=== PATIENT | male | born 1985 | race Caucasian/White ===

== ENCOUNTER 2017-07-16 18:53 | Inpatient (IN) | payer MEDICAID ==
[~2017-07-16] VITALS: Ht 190.5 cm; Wt 97.5 kg
[~2017-07-16 18:53] MED LIST: NO HOME MEDS
[2017-07-16] MEDS ORDERED: vancomycin inj 1,000 MG in normal saline 250ml IV soln 250 ML IV STA (20:27)
[2017-07-16] MEDS ORDERED: normal saline 1000ML IV soln IV ONE (20:30)
[2017-07-16] MEDS ORDERED: nicotine 14mg patch - 24hr TD ONE (20:40)
[2017-07-16] MEDS ORDERED: TETanus/Pertussis (Acell)/Diphther VAC/PF (Tdap-Adult) 0.5ml syringe IMVAC ONE (20:50)
[2017-07-16] MEDS ORDERED: BUPIVAcaine/PF 2.5 mg/ml (0.25%) 30ml vial IJ ONE (20:50)
[2017-07-16 21:05] LABS: BASOPHILS # (AUTO) 0.1 X10'3 (0-0.2); BASOPHILS % (AUTO) 0.8 % (0-1); EOSINOPHILS # (AUTO) 0.3 X10'3 (0-0.9); EOSINOPHILS % (AUTO) 2.4 % (0-6); HEMATOCRIT 40.6 % (42.0-52.0); LYMPHOCYTES # (AUTO) 1.5 X10'3 (1.1-4.8); LYMPHOCYTES % (AUTO) 12.7 % (21-51); MEAN CORPUSCULAR HEMOGLOBIN 29.1 PG (27.0-31.0); MEAN CORPUSCULAR HGB CONC 34.4 % (33.0-36.5); MEAN CORPUSCULAR VOLUME 84.5 FL (78-98); MEAN PLATELET VOLUME 9.8 FL (7.4-10.4); MONOCYTES % (AUTO) 8.4 % (2-12); NEUTROPHILS # (AUTO) 8.9 X10'3 (1.8-7.7); NEUTROPHILS % (AUTO) 75.7 % (42-75); PLATELET COUNT 179 X10'3 (140-440); RED CELL DISTRIBUTION WIDTH 14.4 % (11.5-14.5); WHITE BLOOD COUNT 11.8 X10'3 (4.5-11.0)
[2017-07-16 21:17] LABS: PARTIAL THROMBOPLASTIN TIME 26 SECONDS (22-32)
[2017-07-16 21:19] LABS: ALANINE AMINOTRANSFERASE 25 U/L (12-78); ALBUMIN/GLOBULIN RATIO 0.8 (1.1-1.5); ALKALINE PHOSPHATASE 54 IU/L (46-116); ANION GAP 9 (8-16); ASPARTATE AMINO TRANSFERASE 13 U/L (10-37); BILIRUBIN,TOTAL 0.6 MG/DL (0.1-1.0); BLOOD UREA NITROGEN 7 MG/DL (7-18); BUN/CREATININE RATIO 8.8 (5.4-32.0); CALCIUM 8.5 MG/DL (8.5-10.1); CHLORIDE 101 MMOL/L (99-107); GLUCOSE 101 MG/DL (70-104); POTASSIUM 3.2 MMOL/L (3.5-5.1); SODIUM 140 MMOL/L (135-145); TOTAL CARBON DIOXIDE 30.3 MMOL/L (24-32); TOTAL PROTEIN 6.7 G/DL (6.4-8.2); eGFR > 90 ML/MIN
[2017-07-16] MEDS ORDERED: vancomycin/NS 1 GM ADD-VANTAGE 250 ML IV ONE (21:20)
[2017-07-16 21:57] LABS: CLARITY,URINE CLEAR (Clear); COLOR,URINE YELLOW (Yellow); GLUCOSE, URINE NEGATIVE (Neg); KETONES,URINE NEGATIVE (Neg); LEUKOCYTE ESTERASE ,URINE NEGATIVE (Neg); NITRITES, URINE NEGATIVE (Neg); OCCULT BLOOD,URINE NEGATIVE (Neg); PROTEIN,URINE NEGATIVE (Neg); UA COLLECTION TYPE CLN CATCH MIDSTREAM
[2017-07-16] MEDS ORDERED: LORazepam 2 mg/ml vial IV ONE (22:15)
[2017-07-16 22:20] LABS: TOTAL CELLS COUNTED 100
[2017-07-16 22:21] LABS: LARGE PLATELETS FEW; PLATELET ESTIMATE NORMAL
[2017-07-17] MEDS ORDERED: magnesium Cl slow-release 64mg tablet PO PRN (00:45)
[2017-07-17] MEDS ORDERED: ondansetron/PF 4mg/2ml inj IV PRN (00:45)
[2017-07-17] MEDS ORDERED: potassium Cl 40MEQ/NS 500ml 500 ML IV PRN ×2 (00:45)
[2017-07-17] MEDS ORDERED: thiamine 100mg/ml 2ml inj. IV ONE (00:45)
[2017-07-17] MEDS ORDERED: dextrose 50%-water 50ml dispensing syringe IV PRN (00:45)
[2017-07-17] MEDS ORDERED: haloperidol lactate 5mg/ml inj IM PRN (00:45)
[2017-07-17] MEDS ORDERED: potassium Cl 20mEq in NS 1,000 ML IV SCH (00:45)
[2017-07-17] MEDS ORDERED: HYDROcodone/acetaminophen 5mg/325mg tablet PO PRN (00:45)
[2017-07-17] MEDS ORDERED: mag hydrox/Alum hydrox/simeth 30ml oral suspension PO PRN (00:45)
[2017-07-17] MEDS ORDERED: acetaminophen 325mg tablet PO PRN (00:45)
[2017-07-17] MEDS ORDERED: magnesium 4gm in 100ml NS 100 ML IV PRN (00:45)
[2017-07-17] MEDS ORDERED: haloperidol 5mg tablet PO PRN (00:45)
[2017-07-17] MEDS ORDERED: magnesium 2GM in 50ml NS 50 ML IV PRN (00:45)
[2017-07-17] MEDS ORDERED: potassium Cl 20 mEq SR tablet PO PRN (00:45)
[2017-07-17] MEDS ORDERED: magnesium hydroxide 30ml (MOM) UD suspension PO PRN (00:45)
[2017-07-17] MEDS ORDERED: temazepam 15mg capsule PO PRN (01:03)
[2017-07-17] MEDS ORDERED: vancomycin/NS 1 GM ADD-VANTAGE 250 ML IV ONE (01:20)
[2017-07-17] MEDS: HYDROcodone/acetaminophen 10/325mg tab PO PRN ×3 (01:50→11:49)
[2017-07-17] MEDS: LORazepam 2 mg/ml vial IV PRN ×2 (01:50→11:43)
[2017-07-17] MEDS: potassium Cl 20 mEq SR tablet PO PRN ×2 (02:24→07:34)
[2017-07-17 02:30] VITALS: BP 122/78
[2017-07-17] MEDS ORDERED: vancomycin/NS 1 GM ADD-VANTAGE 250 ML IV SCH (08:00)
[2017-07-17] MEDS ORDERED: K and/or MAG REPLACEMENT MC SCH (08:00)
[2017-07-17] MEDS ORDERED: heparin, porcine 5000 units/ml vial SQ SCH (08:00)
[2017-07-18] MEDS ORDERED: VANCOMYCIN LEVEL IV ONE (07:30)
[2017-07-19] MEDS ORDERED: LORazepam 2 mg/ml vial IV PRN (00:45)
[2017-07-19] MEDS ORDERED: LORazepam 1 MG tablet PO PRN (00:45)
[2017-07-21] MEDS ORDERED: LORazepam 2 mg/ml vial IV PRN (00:45)
[2017-07-21] MEDS ORDERED: LORazepam 1 MG tablet PO PRN (00:45)
== END 2017-07-17 12:17 | disposition left against medical advice (07) | DRG 383 ==
LOC: ER 18:54 → ORTHO 4S 07-17 00:45
PROVIDERS: ADMIT Internal Medicine; ATTEND Internal Medicine
PROC: 0H9CXZZ Drainage of Left Upper Arm Skin, External Approach (ICD-10-PCS; principal; 2017-07-16)
DX: L02.414 Cutaneous abscess of left upper limb (principal); E87.6 Hypokalemia; F17.210 Nicotine dependence, cigarettes, uncomplicated; Z53.21 Procedure and treatment not carried out due to patient leaving prior to being seen by health care provider; L03.114 Cellulitis of left upper limb
CPT/HCPCS: 36415; 71045; 80053; 81003; 83605; 83735; 84132; 84145; 85025; 85610; 85730; 87040; 87070; 90715; 93005; A6212; A6449; J1644; J2060; J2405; J3370; J3411; J3490; J7030; J7040; J7120

== ENCOUNTER → 2017-11-14 | Emergency (ER) | payer MEDICAID ==
[~2017-11-14] VITALS: Ht 193 cm; Wt 81.8 kg
[2017-11-14 13:58] VITALS: BP 140/87
[2017-11-14 14:39] LABS: HIV ANTIBODY 1&2 RAPID NON-REACTIVE (Neg)
[2017-11-16 08:48] LABS: HBSAG SCREEN Negative (Negative); HEPATITIS C ANTIBODY <0.1 s/co ratio (0.0-0.9)
== END | disposition home or self-care (01) ==
LOC: ER 13:55
DX: Z00.00 Encounter for general adult medical examination without abnormal findings (principal); F15.90 Other stimulant use, unspecified, uncomplicated
CPT/HCPCS: 36415; 86703; 86706; 86803; 87340; 99284; J7030

== ENCOUNTER 2017-12-13 16:57 | Emergency (ER) | payer MEDICAID ==
[~2017-12-13 16:57] MED LIST changes: +IBUP-1986 PO
== END 2017-12-13 18:07 | disposition left against medical advice (07) ==
LOC: ER 16:58
DX: M79.606 Pain in leg, unspecified (principal); L08.9 Local infection of the skin and subcutaneous tissue, unspecified; Z53.21 Procedure and treatment not carried out due to patient leaving prior to being seen by health care provider

== ENCOUNTER 2018-11-18 04:32 | Emergency (ER) | payer MEDICAID | END 2018-11-18 04:42 | disposition left against medical advice (07) | LOC: ER 04:34 | DX: T65.891A Toxic effect of other specified substances, accidental (unintentional), initial encounter (principal); Z53.21 Procedure and treatment not carried out due to patient leaving prior to being seen by health care provider; Y92.89 Other specified places as the place of occurrence of the external cause ==

== ENCOUNTER 2019-04-26 11:24 | Emergency (ER) | payer MEDICAID ==
[~2019-04-26] VITALS: Ht 193 cm; Wt 77.3 kg
[2019-04-26] MEDS ORDERED: morphine 4 MG/ML inj SYRINge IV ONE (11:30)
[2019-04-26] MEDS ORDERED: ondansetron/PF 4mg/2ml inj IV ONE (11:30)
[2019-04-26 11:54] LABS: BASOPHILS # (AUTO) 0.1 X10'3 (0-0.2); BASOPHILS % (AUTO) 0.5 % (0-1); EOSINOPHILS # (AUTO) 0.1 X10'3 (0-0.9); EOSINOPHILS % (AUTO) 0.8 % (0-6); HEMATOCRIT 39.5 % (42.0-52.0); HEMOGLOBIN 13.2 g/dl (14.0-17.9); LYMPHOCYTES # (AUTO) 1.1 X10'3 (1.1-4.8); LYMPHOCYTES % (AUTO) 7.3 % (21-51); MEAN CORPUSCULAR HEMOGLOBIN 28.9 PG (27.0-31.0); MEAN CORPUSCULAR HGB CONC 33.4 g/dL (33.0-36.5); MEAN CORPUSCULAR VOLUME 86.7 FL (78-98); MEAN PLATELET VOLUME 8.1 FL (7.4-10.4); MONOCYTES % (AUTO) 6.3 % (2-12); NEUTROPHILS # (AUTO) 12.9 X10'3 (1.8-7.7); NEUTROPHILS % (AUTO) 85.1 % (42-75); PLATELET COUNT 240 X10'3 (140-440); RED BLOOD COUNT 4.56 X10'6 (4.70-6.10); RED CELL DISTRIBUTION WIDTH 14.8 % (11.5-14.5); WHITE BLOOD COUNT 15.2 X10'3 (4.5-11.0)
[2019-04-26 12:17] LABS: ALANINE AMINOTRANSFERASE 181 U/L (12-78); ALBUMIN 3.5 G/DL (3.4-5.0); ALBUMIN/GLOBULIN RATIO 0.9 (1.1-1.5); ALKALINE PHOSPHATASE 80 IU/L (46-116); ANION GAP 6 (8-16); ASPARTATE AMINO TRANSFERASE 80 U/L (10-37); BILIRUBIN,TOTAL 0.6 MG/DL (0.1-1.0); BLOOD UREA NITROGEN 8 MG/DL (7-18); BUN/CREATININE RATIO 10.1 (5.4-32.0); CALCIUM 8.4 MG/DL (8.5-10.1); CHLORIDE 100 MMOL/L (99-107); CREATININE 0.79 MG/DL (0.60-1.10); GLUCOSE 85 MG/DL (70-104); POTASSIUM 3.7 MMOL/L (3.5-5.1); SODIUM 138 MMOL/L (135-145); TOTAL CARBON DIOXIDE 31.9 MMOL/L (24-32); TOTAL PROTEIN 7.5 G/DL (6.4-8.2); eGFR > 90 ML/MIN
[2019-04-26] MEDS ORDERED: CefTRIAXone/D5W-Rocephin 1gm 50 ML IV ONE (12:45)
[2019-04-26] MEDS ORDERED: normal saline 1000ML IV soln IVB ONE (12:45)
[2019-04-26 13:09] VITALS: BP 152/112
--- NOTE | 2019-04-26 13:11 | NUR ---
Patient ambulated to restroom to provide urine sample, while in restroom patient became irratated and started to yell at staff and refusing to give urine sample. Patients states he's not on drugs. Patient continues to yell at staff. Security called and at restroom. Patient escorted back to room. Patient calming down. Xray at bedside. Patient cooperative.
[2019-04-26] MEDS ORDERED: iohexol 300mg/ml 100ml inj. ONE (13:35)
[2019-04-26] MEDS ORDERED: OLANZapine **IM** 10 mg inj. IM ONE (13:40)
--- NOTE | 2019-04-26 13:47 | NUR ---
Patient continues to yell at self and staff while sitting in room.
--- NOTE | 2019-04-26 13:53 | NUR ---
Patient kicked wall. Security at bedside. Lovett PA at bedside. Patient medicated and agrees to calm down.
--- NOTE | 2019-04-26 13:54 | NUR ---
Patient to CT
--- NOTE | 2019-04-26 14:13 | NUR ---
Patient back from CT. Patient lying in bed, cursing at self.
--- NOTE | 2019-04-26 14:39 | NUR ---
Patient resting in bed with eyes closed, no longer yelling or being agressive.
[2019-04-26] MEDS ORDERED: LORazepam 2 mg/ml vial IM ONE (14:50)
[2019-04-26] MEDS ORDERED: ketorolac tromethamine 15mg/ml inj. IV ONE (14:50)
[2019-04-26] MEDS ORDERED: CEPH-572 PO (14:54)
[2019-04-26] MEDS ORDERED: DOXY100C43 PO (14:54)
--- NOTE | 2019-04-26 14:55 | NUR ---
Note barbara in ED - 04/26/19 at 1510 by HANDY pt. requesting to leave. pt. was asked to wait until i could take out his iv. iv removed with cath intact. pt. waiting for discharge paperwork and rx. pt. still talking to himself. pt. still yelling at himself and staff.
--- NOTE | 2019-04-26 15:10 | NUR ---
elsie was going to call orthopedics for this pt. and possibly admit. pt. was irrational and dangerous to staff. that he was given an rx for self medication because he was requesting to leave. elsie felt the safest thing for the pt. and staff was to let him leave, and she wanted to get him antibiotics so she wrote an rx for him to fill and take on his own.
== END 2019-04-26 15:27 | disposition left against medical advice (07) ==
LOC: ER 11:25
DX: L03.114 Cellulitis of left upper limb (principal); F15.90 Other stimulant use, unspecified, uncomplicated; Z79.2 Long term (current) use of antibiotics; Z59.0 Homelessness; Z56.0 Unemployment, unspecified
CPT/HCPCS: 36415; 73130; 73201; 80053; 85025; 85610; 93931; 96372; 96374; 96375; 99284; J0696; J2060; J2270; J2405; J3490; J7030; Q9967

== ENCOUNTER 2023-11-21 21:07 | Emergency (ER) | payer MEDICAID ==
[~2023-11-21] VITALS: Ht 185.4 cm; Wt 86.4 kg
[~2023-11-21 21:07] MED LIST changes: -IBUP-1986 PO
[2023-11-21 22:11] LABS: BASOPHILS # (AUTO) 0.1 X10'3 (0-0.2); BASOPHILS % (AUTO) 0.6 % (0-1); EOSINOPHILS # (AUTO) 0.3 X10'3 (0-0.9); EOSINOPHILS % (AUTO) 2.2 % (0-6); HEMATOCRIT 41.9 % (42.0-52.0); HEMOGLOBIN 13.9 g/dl (14.0-17.9); LYMPHOCYTES # (AUTO) 1.4 X10'3 (1.1-4.8); LYMPHOCYTES % (AUTO) 10.3 % (21-51); MEAN CORPUSCULAR HEMOGLOBIN 28.4 PG (27.0-31.0); MEAN CORPUSCULAR HGB CONC 33.2 g/dL (33.0-36.5); MEAN CORPUSCULAR VOLUME 85.5 FL (78-98); MEAN PLATELET VOLUME 8.6 FL (7.4-10.4); MONOCYTES # (AUTO) 0.8 X10'3 (0-0.9); MONOCYTES % (AUTO) 5.9 % (2-12); PLATELET COUNT 203 X10'3 (140-440); RED BLOOD COUNT 4.91 X10'6 (4.70-6.10); RED CELL DISTRIBUTION WIDTH 14.2 % (11.5-14.5); WHITE BLOOD COUNT 13.6 X10'3 (4.5-11.0)
[2023-11-21] MEDS: normal saline 1000ML IV soln IV ONE (22:17)
[2023-11-21] MEDS: ketorolac trometh 15mg/ml vial 15 MG/ML ML IV ONE (22:17)
[2023-11-21] MEDS: vancomycin/NS 1 GM ADD-VANTAGE 250 ML IV ONE (22:18)
[2023-11-21] MEDS: piperacillin/tazo 3.375gm/50ml 50 ML IV ONE (22:18)
[2023-11-21 22:21] LABS: ALBUMIN 2.7 G/DL (3.4-5.0); ANION GAP 4 (8-16); BLOOD UREA NITROGEN 4 MG/DL (7-18); BUN/CREATININE RATIO 4.8 (10.0-20.0); CALCIUM 8.8 MG/DL (8.5-10.1); CHLORIDE 99 MMOL/L (99-107); CREATININE 0.84 MG/DL (0.60-1.10); GLUCOSE 115 MG/DL (70-104); MAGNESIUM 1.8 MG/DL (1.5-2.4); POTASSIUM 3.1 MMOL/L (3.5-5.1); SODIUM 137 MMOL/L (135-145); TOTAL CARBON DIOXIDE 33.7 MMOL/L (24-32); eCRCL 135 ML/MIN; eGFR > 90 ML/MIN
[2023-11-21] MEDS ORDERED: CHLO118L3 TOP (23:41)
[2023-11-21] MEDS ORDERED: CEPH-585 PO (23:41)
[2023-11-21] MEDS ORDERED: HYDR-3965 PO (23:41)
[2023-11-21] MEDS ORDERED: SULF1TAB49 PO (23:41)
[2023-11-22 00:31] VITALS: BP 129/76; PULSE 61; RESP 14; TEMP 98.8; O2SAT 100
== END 2023-11-22 00:44 | disposition home or self-care (01) ==
LOC: ER 21:07
DX: L03.116 Cellulitis of left lower limb (principal); F15.90 Other stimulant use, unspecified, uncomplicated
CPT/HCPCS: 36415; 73610; 73630; 80048; 83605; 83735; 84145; 85025; 87040; 93005; 96365; 96366; 96368; 96375; 99285; J1885; J2543; J3370; J7030

== ENCOUNTER 2024-04-16 22:23 | Emergency (ER) | payer MEDICAID ==
[~2024-04-16] VITALS: Ht 182.9 cm; Wt 170.0 kg
[~2024-04-16 22:23] MED LIST changes: +CHLO118L3 TOP
[2024-04-17 05:42] LABS: BASOPHILS # (AUTO) 0.1 X10'3 (0-0.2); BASOPHILS % (AUTO) 0.8 % (0-1); EOSINOPHILS # (AUTO) 0.2 X10'3 (0-0.9); EOSINOPHILS % (AUTO) 2.5 % (0-6); HEMATOCRIT 37.1 % (42.0-52.0); HEMOGLOBIN 12.7 g/dl (14.0-17.9); LYMPHOCYTES % (AUTO) 24.3 % (21-51); MEAN CORPUSCULAR HEMOGLOBIN 28.9 PG (27.0-31.0); MEAN CORPUSCULAR HGB CONC 34.4 g/dL (33.0-36.5); MEAN PLATELET VOLUME 7.4 FL (7.4-10.4); MONOCYTES # (AUTO) 0.7 X10'3 (0-0.9); NEUTROPHILS # (AUTO) 5.4 X10'3 (1.8-7.7); NEUTROPHILS % (AUTO) 64.4 % (42-75); PLATELET COUNT 302 X10'3 (140-440); RED BLOOD COUNT 4.41 X10'6 (4.70-6.10); RED CELL DISTRIBUTION WIDTH 13.9 % (11.5-14.5); WHITE BLOOD COUNT 8.4 X10'3 (4.5-11.0)
[2024-04-17 06:02] LABS: ANION GAP 9 (8-16); BLOOD UREA NITROGEN 9 MG/DL (7-18); BUN/CREATININE RATIO 13.8 (10.0-20.0); C-REACTIVE PROTEIN 1.16 MG/DL (0.0-0.5); CALCIUM 8.8 MG/DL (8.5-10.1); CHLORIDE 103 MMOL/L (99-107); CREATININE 0.65 MG/DL (0.60-1.10); GLUCOSE 103 MG/DL (70-104); POTASSIUM 3.7 MMOL/L (3.5-5.1); PRO BRAIN NATRIURETIC PEPTIDE 79 PG/ML (0-125); SODIUM 139 MMOL/L (135-145); TOTAL CARBON DIOXIDE 27.5 MMOL/L (24-32); eCRCL 169 ML/MIN; eGFR > 90 ML/MIN
[2024-04-17] MEDS ORDERED: SULF1TAB45 PO (07:16)
[2024-04-17 07:32] VITALS: BP 121/74; PULSE 75; RESP 16; TEMP 98.6; O2SAT 95
== END 2024-04-17 07:35 | disposition home or self-care (01) ==
LOC: ER 22:23
DX: L03.90 Cellulitis, unspecified (principal); B95.62 Methicillin resistant Staphylococcus aureus infection as the cause of diseases classified elsewhere; M25.512 Pain in left shoulder; F15.90 Other stimulant use, unspecified, uncomplicated
CPT/HCPCS: 36415; 71045; 80048; 83880; 84145; 84484; 85025; 85651; 86140; 93005; 99285